=== PATIENT | male | born 1980 | race Caucasian/White ===

== ENCOUNTER 2020-06-02 13:20 | Outpatient (CLI) | payer OTHER, SELFPAY ==
--- NOTE | 2020-06-06 17:47 | WPDPFTINT ---
PFT Interpretation PFT Interpretation: DOS: 06/02/2020 REQUESTING: Dr. Hdez REASON FOR TESTING: dyspnea PULMONARY FUNCTION TESTS Results are reproducible. Spirometry: FEV1 89%, FVC 84%, FEV 1% is normal. No change with bronchodilator. Lung volumes: TLC 84% normal normal residual volume. Mild increase in airway resistance. Diffusion: DLCO 74%, mildly decreased. Flow volume loop: Inspiratory loop is irregular. IMPRESSION: Normal spirometry, lung volumes with minimal decrease in diffusion. No change with bronchodilator. Grisel Garcia MD
== END 2020-06-02 13:21 | disposition home or self-care (01) ==
PROVIDERS: Visit Provider Internal Medicine Critical Care Medicine
DX: R06.00 Dyspnea, unspecified (principal)
CPT/HCPCS: 94060; 94726; 94729